=== PATIENT | female | born 1975 | race Caucasian/White ===

== ENCOUNTER 2016-12-22 20:21 | Emergency (ER) | payer MEDICARE, MEDICAID ==
[2016-12-22] MEDS ORDERED: DIPH/PERTUSS(ACELL)/TETANUS VAC/PF 0.5 ML SYR (>=10YO) IM ONE (20:27)
--- NOTE | 2016-12-22 20:30 | ER Document Report ---
ED Medical Screen (RME) - General Chief Complaint: Cat Bite Stated Complaint: CAT ATTACK Mode of Arrival: Ambulatory Information source: Patient Notes: pt presents to the ED with cat bite/scratch. Attacked by her own cat about 45 minutes ago. Pt needs tetanus. Reports her cat is just mean and that is why it attacked. Cats shots are not up to date. Pt reports injury to left leg and buttocks. Pt took shower immediately before coming, only used warm water and peroxide. I have greeted and performed a rapid initial assessment of this patient. A comprehensive ED assessment and evaluation of the patient, analysis of test results and completion of the medical decision making process will be conducted by additional ED providers.. Physical Exam - Vital signs Vitals: Temp Pulse Resp BP Pulse Ox 98.0 F 77 16 125/86 H 99 12/22/16 20:25 12/22/16 20:25 12/22/16 20:25 12/22/16 20:25 12/22/16 20:25 Course - Vital Signs Vital signs: Temp Pulse Resp BP Pulse Ox 98.0 F 77 16 125/86 H 99 12/22/16 20:25 12/22/16 20:25 12/22/16 20:25 12/22/16 20:25 12/22/16 20:25
[2016-12-23] MEDS ORDERED: AMOXICILLIN TR/POT CLAVULANATE 500-125 MG TAB PO ONE (00:18)
[2016-12-23] MEDS ORDERED: AZITHROMYCIN 250 MG TABLET PO ONE (00:18)
--- NOTE | 2016-12-23 00:22 | ER Document Report ---
ED General - General Chief Complaint: Cat Bite Stated Complaint: CAT ATTACK Mode of Arrival: Ambulatory Notes: Patient is a 41-year-old female presents with complaint of Bite and scratches to her lower extremities and buttocks. Patient says it was her. She says the cat has not received vaccinations but never goes outside and is a completely a indoor cat. No exposure to rabies. She says that attack on her is actually not abnormal for this As a cat is very dominant and does attack not infrequently. She says the cat has not been acting abnormal at all. Patient is diabetic. She denies any fevers. She immediately cleaned the wounds at home and then came to the ER. TRAVEL OUTSIDE OF THE [place] IN LAST 30 DAYS: No - Related Data Allergies/Adverse Reactions: No Known Allergies Allergy (Unverified 12/22/16 20:31) Past Medical History - General Information source: Patient - Social History Smoking Status: Current Every Day Smoker Chew tobacco use (# tins/day): No Frequency of alcohol use: None Drug Abuse: None Family History: Reviewed & Not Pertinent Patient has suicidal ideation: No Patient has homicidal ideation: No Renal/ Medical History: Denies: Hx Peritoneal Dialysis Review of Systems - Review of Systems Notes: My Normal Review Basic REVIEW OF SYSTEMS: CONSTITUTIONAL : Denies fever, chills, or sweats. Denies recent illness. MUSCULOSKELETAL: Denies neck or back pain or joint pain or swelling. SKIN: Has scratches and bites NEUROLOGICAL: Denies sensory or motor loss. ALL OTHER SYSTEMS REVIEWED AND NEGATIVE. Physical Exam - Vital signs Vitals: Temp Pulse Resp BP Pulse Ox 98.0 F 77 16 125/86 H 99 12/22/16 20:25 12/22/16 20:25 12/22/16 20:25 12/22/16 20:25 12/22/16 20:25 - Notes Notes: General Appearance: Well nourished, alert, cooperative, no acute distress, no obvious discomfort. Well-appearing. Vitals: reviewed, See vital signs table. Eyes: PERRL, EOMI, Conjuctiva clear Extremities: strength 5/5 in all extremities, good pulses in all extremities, multiple skin crutches to the lower extremities bilaterally. No redness or swelling around his nares. No bleeding. All scratches or superficial. Patient has 2 bite isbell to the buttocks. No palpable firmness around the bite isbell.. No evidence of foreign body. These are also superficial. Skin: warm, dry, appropriate color, no rash Neuro: speech clear, oriented x 3, normal affect, responds appropriately to questions. Course - Vital Signs Vital signs: Temp Pulse Resp BP Pulse Ox 98.4 F 68 16 116/75 98 12/23/16 00:31 12/23/16 00:31 12/23/16 00:31 12/23/16 00:31 12/23/16 00:31 - Transfer of Care Notes: 12/23/16 00:41 I went in depth with the patient about the cats not being vaccinated the patient swears that the cats never goes outside and that this is typical behavior for the cat. I informed her that she has one week to determine if she wants to maybe shots or not. I informed her that if there is any abnormal behavior whatsoever with her That she must return to ER immediately. Patient agrees with this. Patient was placed on Augmentin for the Bite and azithromycin for Scratches. She's encouraged return to ER immediately shows fevers, redness or swelling around the bites or scratches, or she has any further concerns. Patient agrees with plan and will be discharged home. Dictation of this chart was performed using voice recognition software; therefore, there may be some unintended grammatical errors. Discharge - Discharge Clinical Impression: Cat scratch Cat bite Qualifiers: Encounter type: initial encounter Qualified Code(s): W55.01XA - Bitten by cat, initial encounter Condition: Good Disposition: HOME, SELF-CARE Additional Instructions: Please continue clean your wounds with soap and water. Apply Neosporin once a day. Please follow-up the doctor in 2-3 days for reevaluation. Please return to ER immediately if has fevers, redness, swelling around the wound. Please return to ER immediately if you feel that your catheter is acting abnormally as you will need a rabies shot. You have one week to determine this. Prescriptions: Amox Tr/Potassium Clavulanate [Augmentin 875-125 Tablet] 1 tab PO BID 7 Days Azithromycin 250 mg PO DAILY #4 tablet
[2016-12-23 00:42] VITALS: BP 116/75
== END 2016-12-23 00:33 | disposition home or self-care (01) ==
LOC: ER 20:21
DX: S81.851A Open bite, right lower leg, initial encounter (principal); S81.852A Open bite, left lower leg, initial encounter; W55.01XA Bitten by cat, initial encounter; F17.200 Nicotine dependence, unspecified, uncomplicated
CPT/HCPCS: 99283; 90471; 90715; A9270 ×2